=== PATIENT | male | born 1965 | race Caucasian/White ===

== ENCOUNTER 2017-01-19 11:38 | Observation (INO) | payer OTHER ==
[~2017-01-19] VITALS: Ht 176.5 cm; Wt 68.6 kg
[~2017-01-19 11:38] MED LIST: APRESOLINE25 MG PO; ATENOLOL100 MG PO; CATAPRES0.1 MG PO; CLONIDINE HCL0.1 MG PO; FLEXERIL10 MG PO; HYDROCODON-ACE1 EAC7 PO; IBUPROFEN800 MG PO; LISINOPRIL20 MG PO; LISINOPRIL40 MG PO; NORVASC5 MG PO; OMEPRAZOLE20 MG PO; PERCOCET 5/31 TABLET PO; PERCOCET 7.51 TABLET PO; PHENERGAN25 MG PR; PREDNISONE10 MG PO; SKELAXIN800 MG PO; ZOFRAN4 MG PO; Zithromax PO
[2017-01-19 12:03] LABS: HEMATOCRIT 45.1 % (38.0-50.0); MCH 26.8 PG (29.0-34.0); MCHC 32.2 G/DL (30.0-36.0); MCV 83.2 FL (86-99); PLATELET COUNT 518 K/uL (156-360); RBC DIS.WIDTH-CV 15.5 % (11.8-14.6); RBC DIS.WIDTH-SD 46.6 % (39-53); RED BLOOD COUNT 5.42 M/uL (4.00-5.50); WHITE BLOOD COUNT 12.4 K/uL (4.1-10.2)
[2017-01-19 13:15] LABS: ANION GAP 14 MEQ/L (2-14); CHLORIDE 90 MEQ/L (99-109); POTASSIUM 4.4 MEQ/L (3.7-5.4); SAMPLE HEMOLYSIS CHECK 0; SAMPLE ICTERIC CHECK 0; SAMPLE LIPEMIA CHECK 0; SODIUM 131 MEQ/L (136-147)
[2017-01-19 13:21] LABS: GFR ESTIMATE (CALCULATED) > 59 mL/min/; GLUCOSE 132 mg/dL (70-99); UREA NITROGEN (BUN) 9 mg/dL (9-23)
[2017-01-19 13:22] LABS: TROP-I INTERPRETATION NEGATIVE; TROPONIN-I 0.03 ng/mL (0.0-0.30)
[2017-01-19] MEDS ORDERED: CLONIDINE HCL0.2 MG PO (14:54)
[2017-01-19] MEDS ORDERED: FLEXERIL5 MG PO (14:55)
[2017-01-19] MEDS ORDERED: PERCOCET 10/1 TABLET PO (14:55)
[2017-01-19] MEDS ORDERED: SEROQUEL12.5 MG PO (14:56)
[2017-01-19] MEDS ORDERED: FOLIC ACID1 MG PO (14:56)
[2017-01-19] MEDS ORDERED: NEURONTIN400 MG PO (14:56)
[2017-01-19 16:29] LABS: TROP-I INTERPRETATION NEGATIVE; TROPONIN-I 0.03 ng/mL (0.0-0.30)
[2017-01-19 16:40] VITALS: BP 195/104
[2017-01-19 19:00] VITALS: BP 156/77
[2017-01-20 00:42] VITALS: BP 114/66
[2017-01-20 01:28] LABS: TROP-I INTERPRETATION NEGATIVE; TROPONIN-I 0.03 ng/mL (0.0-0.30)
[2017-01-20 04:36] VITALS: BP 109/55
[2017-01-20 06:48] LABS: HEMATOCRIT 37.1 % (38.0-50.0); MCH 27.2 PG (29.0-34.0); MCHC 32.9 G/DL (30.0-36.0); MCV 82.8 FL (86-99); MEAN PLAT.VOLUME 10.1 uM^3 (9.0-12.4); PLATELET COUNT 392 K/uL (156-360); RBC DIS.WIDTH-CV 15.6 % (11.8-14.6); RBC DIS.WIDTH-SD 46.8 % (39-53); RED BLOOD COUNT 4.48 M/uL (4.00-5.50)
[2017-01-20 06:53] LABS: ANION GAP 9 MEQ/L (2-14); CHLORIDE 95 MEQ/L (99-109); GFR ESTIMATE (CALCULATED) > 59 mL/min/; GLUCOSE 88 mg/dL (70-99); POTASSIUM 3.8 MEQ/L (3.7-5.4); SAMPLE HEMOLYSIS CHECK 0; SAMPLE ICTERIC CHECK 0; SAMPLE LIPEMIA CHECK 0; SODIUM 134 MEQ/L (136-147); UREA NITROGEN (BUN) 14 mg/dL (9-23); WHITE BLOOD COUNT 8.1 K/uL (4.1-10.2)
[2017-01-20] MEDS ORDERED: LABETALOL HCL200 MG PO (09:05)
[2017-01-20] MEDS ORDERED: LISINOPRIL20 MG PO (09:05)
[2017-01-20 09:10] LABS: LYME DISEASE SEROLOGY SCREEN NEGATIVE (NEGATIVE)
[2017-01-20 09:30] VITALS: BP 117/68
[2017-01-20 12:46] LABS: LYME DISEASE SEROLOGY SCREEN NEGATIVE (NEGATIVE)
== END 2017-01-20 11:07 | disposition home or self-care (01) ==
LOC: EME 11:38 → 5WEST 15:16 → EDOF 15:16 → 5WEST 16:17
PROVIDERS: Internal Medicine; Student in an Organized Health Care Education/Training Program
DX: R07.9 Chest pain, unspecified (principal); I16.0 Hypertensive urgency; I10 Essential (primary) hypertension; E87.1 Hypo-osmolality and hyponatremia; W57.XXXA Bitten or stung by nonvenomous insect and other nonvenomous arthropods, initial encounter; D72.829 Elevated white blood cell count, unspecified; M54.42 Lumbago with sciatica, left side; G89.29 Other chronic pain; E78.5 Hyperlipidemia, unspecified; F32.9 Major depressive disorder, single episode, unspecified; F17.200 Nicotine dependence, unspecified, uncomplicated
CPT/HCPCS: 71020; 80048; 84484; 85027; 86618; 93005; 99281; 99285; G0378; J7030

== ENCOUNTER 2017-02-03 18:12 | Observation (INO) | payer OTHER ==
[~2017-02-03] VITALS: Ht 175.3 cm; Wt 70.7 kg
[~2017-02-03 18:12] MED LIST changes: +CLONIDINE HCL0.2 MG PO; +FLEXERIL5 MG PO; +FOLIC ACID1 MG PO; +LABETALOL HCL200 MG PO; +NEURONTIN400 MG PO; +PERCOCET 10/1 TABLET PO; +SEROQUEL12.5 MG PO
[2017-02-03 19:01] LABS: EOSINOPHIL (%) 2.2 % (0-5); EOSINOPHIL COUNT 0.2 K/uL (0-0.3); HEMATOCRIT 36.4 % (38.0-50.0); IMMATURE GRANULOCYTE (%) 0.3 % (0.0-0.7); INSTRUMENT ABS NEUTROPHIL CT 6.5 K/uL; LYMPHOCYTE COUNT 1.9 K/uL (1.0-2.8); MCH 26.8 PG (29.0-34.0); MCHC 32.1 G/DL (30.0-36.0); MCV 83.5 FL (86-99); MEAN PLAT.VOLUME 9.3 uM^3 (9.0-12.4); MONOCYTE (%) 7.9 % (3-12); MONOCYTE COUNT 0.7 K/uL (0-0.8); NEUTROPHIL COUNT 6.5 K/uL (1.8-6.4); PLATELET COUNT 317 K/uL (156-360); RBC DIS.WIDTH-CV 16.6 % (11.8-14.6); RBC DIS.WIDTH-SD 50.3 % (39-53); RED BLOOD COUNT 4.36 M/uL (4.00-5.50); WHITE BLOOD COUNT 9.4 K/uL (4.1-10.2)
[2017-02-03 19:11] LABS: CHLORIDE 104 mEq/L (99-109); POTASSIUM 3.8 mEq/L (3.7-5.4); SODIUM 139 mEq/L (136-147)
[2017-02-03 19:12] LABS: MAGNESIUM 2.1 mg/dL (1.3-2.7)
[2017-02-03 19:13] LABS: D-DIMER ELISA 0.53 mg/L FEU (< 0.57); GLUCOSE 91 mg/dL (70-99); PROTHROMBIN TIME 10.5 (9.2-11.2); PTT 31.3 (25-32)
[2017-02-03 19:15] LABS: ANION GAP 9 MEQ/L (2-14)
[2017-02-03 19:17] LABS: GFR ESTIMATE (CALCULATED) > 59 mL/min/
[2017-02-03 19:18] LABS: UREA NITROGEN (BUN) 9 mg/dL (9-23)
[2017-02-03 19:21] LABS: TROP-I INTERPRETATION NEGATIVE; TROPONIN-I 0.29 ng/mL (0.0-0.30)
[2017-02-03 22:40] VITALS: BP 152/91
[2017-02-04 02:54] LABS: TROP-I INTERPRETATION NEGATIVE; TROPONIN-I 0.25 ng/mL (0.0-0.30)
[2017-02-04 05:12] VITALS: BP 128/80
[2017-02-04 07:50] VITALS: BP 145/71
[2017-02-04 09:27] LABS: TROP-I INTERPRETATION NEGATIVE; TROPONIN-I 0.22 ng/mL (0.0-0.30)
[2017-02-04 11:58] VITALS: BP 168/79
[2017-02-04] MEDS ORDERED: NITROSTAT0.4 MG SL (12:24)
[2017-02-04] MEDS ORDERED: ASPIR-LOW81 MG PO (12:24)
[2017-02-04] MEDS ORDERED: AMLODIPINE BESYL5 MG PO (12:24)
[2017-02-04] MEDS ORDERED: LISINOPRIL40 MG PO (12:25)
== END 2017-02-04 13:17 | disposition home or self-care (01) ==
LOC: EME 18:12 → EDOF 20:49 → 5WEST 20:49 → EDOF 20:49 → 5WEST 22:09
PROVIDERS: Emergency Medicine; Internal Medicine
DX: R07.89 Other chest pain (principal); I16.0 Hypertensive urgency; I10 Essential (primary) hypertension; R42 Dizziness and giddiness; G89.29 Other chronic pain; M54.30 Sciatica, unspecified side; E78.5 Hyperlipidemia, unspecified; R68.84 Jaw pain; F32.9 Major depressive disorder, single episode, unspecified; F17.200 Nicotine dependence, unspecified, uncomplicated; Z82.49 Family history of ischemic heart disease and other diseases of the circulatory system
CPT/HCPCS: 71010; 80048; 83735; 84484; 85025; 85379; 85610; 85730; 93005; 99281; 99285; G0378; S0028

== ENCOUNTER 2017-10-15 18:47 | Observation (INO) | payer OTHER ==
[~2017-10-15] VITALS: Ht 176.5 cm; Wt 69.0 kg
[~2017-10-15 18:47] MED LIST changes: +AMLODIPINE BESYL5 MG PO; +ASPIR-LOW81 MG PO; -CLONIDINE HCL0.2 MG PO; +NITROSTAT0.4 MG SL; +SEROQUEL100 MG PO; -SEROQUEL12.5 MG PO
[2017-10-15 19:48] LABS: BASOPHIL (%) 0.3 % (0-1); EOSINOPHIL (%) 1.9 % (0-5); EOSINOPHIL COUNT 0.2 K/uL (0-0.3); HEMATOCRIT 31.1 % (38.0-50.0); HEMOGLOBIN 10.3 G/DL (12.5-16.6); IMMATURE GRANULOCYTE (%) 0.5 % (0.0-0.7); LYMPHOCYTE (%) 29.3 % (15-42); LYMPHOCYTE COUNT 2.6 K/uL (1.0-2.8); MCH 29.5 PG (29.0-34.0); MCHC 33.1 G/DL (30.0-36.0); MCV 89.1 FL (86-99); MONOCYTE (%) 7.1 % (3-12); MONOCYTE COUNT 0.6 K/uL (0-0.8); NEUTROPHIL (%) 60.9 % (45-76); NEUTROPHIL COUNT 5.4 K/uL (1.8-6.4); PLATELET COUNT 464 K/uL (156-360); RBC DIS.WIDTH-CV 14.3 % (11.8-14.6); RBC DIS.WIDTH-SD 46.2 % (39-53); RED BLOOD COUNT 3.49 M/uL (4.00-5.50); WHITE BLOOD COUNT 8.9 K/uL (4.1-10.2)
[2017-10-15 20:10] LABS: TROP-I INTERPRETATION NEGATIVE; TROPONIN-I 0.02 ng/mL (0.0-0.30)
[2017-10-15 20:21] LABS: ALBUMIN 3.7 g/dL (3.2-4.8); CHLORIDE 102 mEq/L (99-109); POTASSIUM 4.2 mEq/L (3.7-5.4); SODIUM 136 mEq/L (136-147)
[2017-10-15 20:23] LABS: GLUCOSE 101 mg/dL (70-99); TOTAL PROTEIN 6.9 g/dL (6.4-8.3)
[2017-10-15 20:25] LABS: TOTAL BILIRUBIN 0.2 mg/dL (0.0-1.0)
[2017-10-15 20:27] LABS: ALKALINE PHOSPHATASE 70 IU/L (3-129); CREATININE 1.9 mg/dL (0.6-1.3); GFR ESTIMATE (CALCULATED) 40 mL/min/ (58.99-99999)
[2017-10-15 20:28] LABS: UREA NITROGEN (BUN) 19 mg/dL (9-23)
[2017-10-15 20:29] LABS: AST (GOT) 11 IU/L (2-34)
[2017-10-15 20:30] LABS: ALT (GPT) 10 IU/L (3-49)
[2017-10-15] MEDS ORDERED: LISINOPRIL40 MG PO (21:11)
[2017-10-16 02:32] LABS: TROP-I INTERPRETATION NEGATIVE; TROPONIN-I 0.01 ng/mL (0.0-0.30)
[2017-10-16 04:37] VITALS: BP 122/58
[2017-10-16 07:36] VITALS: BP 162/84
[2017-10-16 08:08] LABS: BASOPHIL (%) 0.5 % (0-1); EOSINOPHIL (%) 1.8 % (0-5); EOSINOPHIL COUNT 0.1 K/uL (0-0.3); HEMATOCRIT 29.4 % (38.0-50.0); HEMOGLOBIN 9.6 G/DL (12.5-16.6); IMMATURE GRANULOCYTE (%) 0.3 % (0.0-0.7); LYMPHOCYTE (%) 46.6 % (15-42); LYMPHOCYTE COUNT 3.5 K/uL (1.0-2.8); MCH 29.1 PG (29.0-34.0); MCHC 32.7 G/DL (30.0-36.0); MCV 89.1 FL (86-99); MONOCYTE (%) 6.1 % (3-12); MONOCYTE COUNT 0.5 K/uL (0-0.8); NEUTROPHIL (%) 44.7 % (45-76); NEUTROPHIL COUNT 3.4 K/uL (1.8-6.4); PLATELET COUNT 426 K/uL (156-360); RBC DIS.WIDTH-CV 14.1 % (11.8-14.6); RBC DIS.WIDTH-SD 45.6 % (39-53); WHITE BLOOD COUNT 7.6 K/uL (4.1-10.2)
[2017-10-16 08:26] LABS: TROP-I INTERPRETATION NEGATIVE; TROPONIN-I < 0.01 ng/mL (0.0-0.30)
[2017-10-16 08:40] LABS: ALKALINE PHOSPHATASE 51 IU/L (3-129); ALT (GPT) 8 IU/L (3-49); AST (GOT) 8 IU/L (2-34); CHLORIDE 109 MEQ/L (99-109); DIRECT BILIRUBIN 0.1 mg/dL (0.0-0.3); GFR ESTIMATE (CALCULATED) 57 mL/min/ (58.99-99999); GLUCOSE 90 mg/dL (70-99); POTASSIUM 4.2 MEQ/L (3.7-5.4); SODIUM 139 MEQ/L (136-147); TOTAL BILIRUBIN 0.2 MG/DL (0.0-1.0); TOTAL PROTEIN 5.5 G/DL (6.4-8.3); UREA NITROGEN (BUN) 16 mg/dL (9-23)
[2017-10-16 08:42] LABS: CREATININE 1.4 MG/DL (0.6-1.3)
[2017-10-16 11:55] VITALS: BP 155/82
== END 2017-10-16 13:28 | disposition home or self-care (01) ==
LOC: EME 18:47 → EDOF 21:39 → 5WEST 21:39 → ENRESERV 21:41 → 5WEST 23:37
PROVIDERS: Emergency Medicine; Physician Assistant
DX: R55 Syncope and collapse (principal); N17.9 Acute kidney failure, unspecified; E86.0 Dehydration; I10 Essential (primary) hypertension; G89.29 Other chronic pain; M54.2 Cervicalgia; R06.02 Shortness of breath; M54.5 Low back pain; F17.210 Nicotine dependence, cigarettes, uncomplicated; R29.6 Repeated falls; Z88.6 Allergy status to analgesic agent; Z88.5 Allergy status to narcotic agent
CPT/HCPCS: 70450; 71046; 78582; 80048; 80053; 80076; 83605; 84484; 85025; 85379; 93005; 93970; 94640; 99202; 99281; 99284; A9540; A9567; G0378; J1650; J7030; J7040

== ENCOUNTER 2017-12-16 18:46 | Inpatient (IN) | payer OTHER ==
[~2017-12-16] VITALS: Ht 175.3 cm; Wt 72.0 kg
[2017-12-16 19:42] LABS: HEMATOCRIT 37.3 % (38.0-50.0); HEMOGLOBIN 12.4 G/DL (12.5-16.6); MCHC 33.2 G/DL (30.0-36.0); MCV 87.4 FL (86-99); PLATELET COUNT 378 K/uL (156-360); RBC DIS.WIDTH-CV 15.3 % (11.8-14.6); RBC DIS.WIDTH-SD 49.4 % (39-53); RED BLOOD COUNT 4.27 M/uL (4.00-5.50); WHITE BLOOD COUNT 10.9 K/uL (4.1-10.2)
[2017-12-16 20:01] LABS: CHLORIDE 103 mEq/L (99-109); POTASSIUM 4.2 mEq/L (3.7-5.4); SODIUM 136 mEq/L (136-147)
[2017-12-16 20:03] LABS: GLUCOSE 99 mg/dL (70-99)
[2017-12-16 20:04] LABS: TROP-I INTERPRETATION POSITIVE
[2017-12-16 20:06] LABS: TROPONIN-I 1.45 ng/mL (0.0-0.30)
[2017-12-16 20:07] LABS: CREATININE 1.8 mg/dL (0.6-1.3); GFR ESTIMATE (CALCULATED) 42 mL/min/ (58.99-99999)
[2017-12-16 20:08] LABS: UREA NITROGEN (BUN) 22 mg/dL (9-23)
[2017-12-16 20:33] LABS: INTER. NORMALIZED RATIO 1.1
[2017-12-16 20:35] LABS: PTT 30.6 SEC (25-37)
[2017-12-16] MEDS ORDERED: IRON325 M1 PO (20:52)
[2017-12-16] MEDS ORDERED: LABETALOL HCL200 MG PO (20:52)
[2017-12-16] MEDS ORDERED: FOLIC ACID1 MG PO (20:53)
[2017-12-16 22:59] LABS: HEMATOCRIT 34.4 % (38.0-50.0); HEMOGLOBIN 11.3 G/DL (12.5-16.6); MCH 28.5 PG (29.0-34.0); MCHC 32.8 G/DL (30.0-36.0); MCV 86.6 FL (86-99); PLATELET COUNT 356 K/uL (156-360); RBC DIS.WIDTH-CV 15.1 % (11.8-14.6); RBC DIS.WIDTH-SD 48.4 % (39-53); RED BLOOD COUNT 3.97 M/uL (4.00-5.50); WHITE BLOOD COUNT 12.3 K/uL (4.1-10.2)
[2017-12-16 23:05] LABS: INTER. NORMALIZED RATIO 1.1
[2017-12-16 23:21] LABS: PTT 161.6 SEC (25-37)
[2017-12-17 01:13] VITALS: BP 196/95
[2017-12-17 02:18] LABS: TROP-I INTERPRETATION POSITIVE; TROPONIN-I 1.87 ng/mL (0.0-0.30)
[2017-12-17 04:59] LABS: HEMATOCRIT 33.3 % (38.0-50.0); HEMOGLOBIN 11.2 G/DL (12.5-16.6); MCH 28.9 PG (29.0-34.0); MCHC 33.6 G/DL (30.0-36.0); MCV 85.8 FL (86-99); PLATELET COUNT 344 K/uL (156-360); RBC DIS.WIDTH-CV 14.8 % (11.8-14.6); RBC DIS.WIDTH-SD 46.5 % (39-53); RED BLOOD COUNT 3.88 M/uL (4.00-5.50)
[2017-12-17 05:09] LABS: ALBUMIN 3.7 g/dL (3.2-4.8); CHLORIDE 107 mEq/L (99-109); POTASSIUM 4.1 mEq/L (3.7-5.4); SODIUM 139 mEq/L (136-147)
[2017-12-17 05:12] VITALS: BP 132/83
[2017-12-17 05:12] LABS: GLUCOSE 107 mg/dL (70-99); TOTAL PROTEIN 5.9 g/dL (6.4-8.3); TROP-I INTERPRETATION POSITIVE
[2017-12-17 05:13] LABS: TOTAL BILIRUBIN 0.2 mg/dL (0.0-1.0)
[2017-12-17 05:15] LABS: ALKALINE PHOSPHATASE 63 IU/L (3-129); CREATININE 1.4 mg/dL (0.6-1.3); GFR ESTIMATE (CALCULATED) 57 mL/min/ (58.99-99999); TROPONIN-I 1.81 ng/mL (0.0-0.30)
[2017-12-17 05:16] LABS: UREA NITROGEN (BUN) 18 mg/dL (9-23)
[2017-12-17 05:17] LABS: AST (GOT) 10 IU/L (2-34)
[2017-12-17 05:18] LABS: ALT (GPT) 6 IU/L (3-49)
[2017-12-17 07:36] VITALS: BP 132/75
[2017-12-17 17:00] VITALS: BP 124/62
[2017-12-17 17:45] LABS: TROP-I INTERPRETATION POSITIVE; TROPONIN-I 1.73 ng/mL (0.0-0.30)
[2017-12-17 20:00] VITALS: BP 125/73
[2017-12-17 23:55] VITALS: BP 112/59
[2017-12-18 04:00] VITALS: BP 107/66
[2017-12-18 05:56] LABS: HEMATOCRIT 34.5 % (38.0-50.0); HEMOGLOBIN 11.1 G/DL (12.5-16.6); MCH 28.1 PG (29.0-34.0); MCHC 32.2 G/DL (30.0-36.0); MCV 87.3 FL (86-99); PLATELET COUNT 345 K/uL (156-360); RBC DIS.WIDTH-CV 15.2 % (11.8-14.6); RBC DIS.WIDTH-SD 49.1 % (39-53); RED BLOOD COUNT 3.95 M/uL (4.00-5.50); WHITE BLOOD COUNT 8.2 K/uL (4.1-10.2)
[2017-12-18 07:04] LABS: HDL CHOLESTEROL 14 MG/DL (Desirable>=40); LDL CHOLESTEROL 148 mg/dL (Desirable<100); NON-HDL CHOLESTEROL 193 mg/dL (Desirable<160); TOTAL CHOLESTEROL 207 mg/dL (Desirable<200); TRIGLYCERIDES 223 MG/DL (Normal: <150)
[2017-12-18 07:53] VITALS: BP 130/62
[2017-12-18] MEDS ORDERED: ASPIR-LOW81 MG PO (10:16)
[2017-12-18] MEDS ORDERED: BRILINTA90 MG PO (10:16)
[2017-12-18] MEDS ORDERED: NICOTINE PATCH1 EAC2 TD (10:16)
[2017-12-18] MEDS ORDERED: ATORVASTATIN CA80 MG PO (10:16)
[2017-12-18] MEDS ORDERED: NITROSTAT0.4 MG SL (10:16)
[2017-12-18 10:58] LABS: HEMOGLOBIN A1c (GLYCOHEMOGLOB) 5.3 % (Below 5.7)
[2017-12-18 12:04] VITALS: BP 139/93
== END 2017-12-18 14:05 | disposition home or self-care (01) | DRG 247 ==
LOC: EME 18:46 → EDOF 22:01 → 4EAST 22:01 → ENRESERV 22:03 → 4EAST 12-17 00:51
PROVIDERS: Emergency Medicine; Internal Medicine; Internal Medicine Cardiovascular Disease
DX: I21.4 Non-ST elevation (NSTEMI) myocardial infarction (principal); I10 Essential (primary) hypertension; N17.9 Acute kidney failure, unspecified; K21.9 Gastro-esophageal reflux disease without esophagitis; R00.1 Bradycardia, unspecified; Z82.49 Family history of ischemic heart disease and other diseases of the circulatory system; Z80.8 Family history of malignant neoplasm of other organs or systems; F17.210 Nicotine dependence, cigarettes, uncomplicated; E78.5 Hyperlipidemia, unspecified; Z83.3 Family history of diabetes mellitus; I25.10 Atherosclerotic heart disease of native coronary artery without angina pectoris
CPT/HCPCS: 71046; 80048; 80053; 80061; 83036; 84484; 85027; 85347; 85610; 85730; 93005; 93306; 99281; 99285; C1725; C1769; C1874; C1887; J1644; J2250; J3010; J7030

== ENCOUNTER 2017-12-30 14:17 | Inpatient (IN) | payer OTHER ==
[~2017-12-30] VITALS: Ht 175.3 cm; Wt 67.8 kg
[~2017-12-30 14:17] MED LIST changes: +ATORVASTATIN CA80 MG PO; +BRILINTA90 MG PO; +IRON325 M1 PO; +NICOTINE PATCH1 EAC2 TD
[2017-12-30 14:48] LABS: HEMATOCRIT 36.7 % (38.0-50.0); HEMOGLOBIN 12.1 G/DL (12.5-16.6); MCH 28.8 PG (29.0-34.0); MCV 87.4 FL (86-99); PLATELET COUNT 387 K/uL (156-360); RBC DIS.WIDTH-CV 14.9 % (11.8-14.6); RBC DIS.WIDTH-SD 48.2 % (39-53); WHITE BLOOD COUNT 13.5 K/uL (4.1-10.2)
[2017-12-30 14:56] LABS: CHLORIDE 108 mEq/L (99-109); POTASSIUM 4.6 mEq/L (3.7-5.4); SODIUM 142 mEq/L (136-147)
[2017-12-30 14:58] LABS: GLUCOSE 129 mg/dL (70-99)
[2017-12-30 15:02] LABS: GFR ESTIMATE (CALCULATED) > 59 mL/min/ (58.99-99999)
[2017-12-30 15:03] LABS: UREA NITROGEN (BUN) 12 mg/dL (9-23)
[2017-12-30 15:08] LABS: TROP-I INTERPRETATION NEGATIVE
[2017-12-30] MEDS ORDERED: LIPITOR80 MG PO (15:56)
[2017-12-30] MEDS ORDERED: ADULT ASPIRIN R81 MG PO (15:57)
[2017-12-30 17:16] LABS: INTER. NORMALIZED RATIO 1.2
[2017-12-30 17:19] LABS: PTT 32.9 SEC (25-37)
[2017-12-30 17:33] LABS: TROP-I INTERPRETATION NEGATIVE; TROPONIN-I 0.09 ng/mL (0.0-0.30)
[2017-12-30 19:40] VITALS: BP 150/79
[2017-12-30 22:53] VITALS: BP 109/57
[2017-12-31 01:15] LABS: TROP-I INTERPRETATION NEGATIVE; TROPONIN-I 0.08 ng/mL (0.0-0.30)
[2017-12-31 05:15] VITALS: BP 138/67
[2017-12-31 08:00] VITALS: BP 119/76
[2017-12-31 08:19] LABS: HEMATOCRIT 32.3 % (38.0-50.0); HEMOGLOBIN 10.5 G/DL (12.5-16.6); MCH 28.3 PG (29.0-34.0); MCHC 32.5 G/DL (30.0-36.0); MCV 87.1 FL (86-99); PLATELET COUNT 338 K/uL (156-360); RBC DIS.WIDTH-CV 14.9 % (11.8-14.6); RED BLOOD COUNT 3.71 M/uL (4.00-5.50); WHITE BLOOD COUNT 11.3 K/uL (4.1-10.2)
[2017-12-31 08:40] LABS: TROP-I INTERPRETATION NEGATIVE; TROPONIN-I 0.08 ng/mL (0.0-0.30)
[2017-12-31 08:51] LABS: CHLORIDE 109 MEQ/L (99-109); CREATININE 1.1 MG/DL (0.6-1.3); GFR ESTIMATE (CALCULATED) > 59 mL/min/ (58.99-99999); GLUCOSE 102 mg/dL (70-99); POTASSIUM 3.8 MEQ/L (3.7-5.4); SODIUM 141 MEQ/L (136-147); UREA NITROGEN (BUN) 14 mg/dL (9-23)
[2017-12-31 12:13] VITALS: BP 129/60
[2017-12-31 16:26] VITALS: BP 130/81
[2017-12-31 19:47] VITALS: BP 146/83
[2017-12-31 23:00] VITALS: BP 135/79
[2018-01-01 04:15] VITALS: BP 122/66
[2018-01-01 05:24] LABS: HEMATOCRIT 32.3 % (38.0-50.0); HEMOGLOBIN 10.4 G/DL (12.5-16.6); MCH 27.9 PG (29.0-34.0); MCHC 32.2 G/DL (30.0-36.0); MCV 86.6 FL (86-99); PLATELET COUNT 346 K/uL (156-360); RBC DIS.WIDTH-CV 14.8 % (11.8-14.6); RBC DIS.WIDTH-SD 47.6 % (39-53); RED BLOOD COUNT 3.73 M/uL (4.00-5.50); WHITE BLOOD COUNT 11.5 K/uL (4.1-10.2)
[2018-01-01] MEDS ORDERED: AMLODIPINE BESYL5 MG PO (07:39)
[2018-01-01 08:52] VITALS: BP 150/80
== END 2018-01-01 09:11 | disposition home or self-care (01) | DRG 281 ==
LOC: EME 14:17 → 4EAST 16:33 → EDOF 16:33 → ENRESERV 16:39 → 4EAST 19:39
PROVIDERS: Internal Medicine
DX: I16.0 Hypertensive urgency (principal); I25.110 Atherosclerotic heart disease of native coronary artery with unstable angina pectoris; Z95.5 Presence of coronary angioplasty implant and graft; I21.4 Non-ST elevation (NSTEMI) myocardial infarction; F17.210 Nicotine dependence, cigarettes, uncomplicated; E78.5 Hyperlipidemia, unspecified; I10 Essential (primary) hypertension; Z79.899 Other long term (current) drug therapy
CPT/HCPCS: 71046; 80048; 84484; 85027; 85610; 85730; 93005; 99281; 99285

== ENCOUNTER 2018-01-26 21:45 | Observation (INO) | payer OTHER ==
[~2018-01-26] VITALS: Ht 175.3 cm; Wt 67.5 kg
[~2018-01-26 21:45] MED LIST changes: +ADULT ASPIRIN R81 MG PO; +LIPITOR80 MG PO
[2018-01-26 22:29] LABS: HEMATOCRIT 32.5 % (38.0-50.0); HEMOGLOBIN 10.6 G/DL (12.5-16.6); MCH 28.4 PG (29.0-34.0); MCHC 32.6 G/DL (30.0-36.0); MCV 87.1 FL (86-99); PLATELET COUNT 299 K/uL (156-360); RBC DIS.WIDTH-CV 14.9 % (11.8-14.6); RBC DIS.WIDTH-SD 47.7 % (39-53); RED BLOOD COUNT 3.73 M/uL (4.00-5.50); WHITE BLOOD COUNT 8.1 K/uL (4.1-10.2)
[2018-01-26 22:36] LABS: INTER. NORMALIZED RATIO 1.2
[2018-01-26 22:38] LABS: ALBUMIN 3.7 g/dL (3.2-4.8); CHLORIDE 103 mEq/L (99-109); POTASSIUM 3.7 mEq/L (3.7-5.4); SODIUM 139 mEq/L (136-147)
[2018-01-26 22:39] LABS: PTT 32.3 SEC (25-37)
[2018-01-26 22:40] LABS: GLUCOSE 103 mg/dL (70-99)
[2018-01-26 22:41] LABS: TOTAL PROTEIN 6.8 g/dL (6.4-8.3)
[2018-01-26 22:42] LABS: TOTAL BILIRUBIN 0.2 mg/dL (0.0-1.0)
[2018-01-26 22:44] LABS: ALKALINE PHOSPHATASE 83 IU/L (3-129); CREATININE 1.3 mg/dL (0.6-1.3); GFR ESTIMATE (CALCULATED) > 59 mL/min/ (58.99-99999)
[2018-01-26 22:45] LABS: UREA NITROGEN (BUN) 11 mg/dL (9-23)
[2018-01-26 22:46] LABS: AST (GOT) 11 IU/L (2-34)
[2018-01-26 22:47] LABS: ALT (GPT) 10 IU/L (3-49)
[2018-01-26 22:51] LABS: TROP-I INTERPRETATION NEGATIVE; TROPONIN-I 0.03 ng/mL (0.0-0.30)
[2018-01-27 03:26] LABS: TROP-I INTERPRETATION NEGATIVE; TROPONIN-I 0.03 ng/mL (0.0-0.30)
[2018-01-27 05:21] VITALS: BP 133/70
[2018-01-27 05:36] VITALS: BP 124/55; BP 128/69; BP 145/73
[2018-01-27 07:10] VITALS: BP 140/70
[2018-01-27] MEDS ORDERED: CLONIDINE HCL0.1 MG PO ×2 (09:20→09:21)
[2018-01-27 09:43] LABS: TROP-I INTERPRETATION NEGATIVE; TROPONIN-I 0.04 ng/mL (0.0-0.30)
[2018-01-27 12:06] VITALS: BP 113/60
[2018-01-27 15:50] LABS: TROP-I INTERPRETATION NEGATIVE; TROPONIN-I 0.03 ng/mL (0.0-0.30)
== END 2018-01-27 16:10 | disposition home or self-care (01) ==
LOC: EME → EDBD 21:45 → EME 21:45 → ENPENDDIS 01-27 → EDOF 01-27 04:00 → 4SOUTH 01-27 04:00 → ENRESERV 01-27 04:04 → 4SOUTH 01-27 05:11
PROVIDERS: Emergency Medicine; Physician Assistant
DX: I95.9 Hypotension, unspecified (principal); R07.9 Chest pain, unspecified; R00.1 Bradycardia, unspecified; I25.2 Old myocardial infarction; I25.10 Atherosclerotic heart disease of native coronary artery without angina pectoris; I25.82 Chronic total occlusion of coronary artery; Z95.5 Presence of coronary angioplasty implant and graft; I10 Essential (primary) hypertension; E78.5 Hyperlipidemia, unspecified; F17.210 Nicotine dependence, cigarettes, uncomplicated; G89.29 Other chronic pain; M54.9 Dorsalgia, unspecified; Z83.3 Family history of diabetes mellitus; Z88.6 Allergy status to analgesic agent; Z88.5 Allergy status to narcotic agent; Z88.8 Allergy status to other drugs, medicaments and biological substances; Z79.82 Long term (current) use of aspirin
CPT/HCPCS: 70450; 71045; 80053; 83880; 84484; 85027; 85610; 85730; 93005; G0378; J1644; J2765; J7030